=== PATIENT | female | born 1995 | race Caucasian/White ===

== ENCOUNTER → 2025-05-21 11:06 | Outpatient (REF) | payer BC, SELFPAY | LOC: DHSLP 11:06 | PROVIDERS: ATTENDING PHYSICIAN Internal Medicine Critical Care Medicine; FAMILY PHYSICIAN Otolaryngology | DX: G47.33 Obstructive sleep apnea (adult) (pediatric) (principal); R06.83 Snoring | CPT/HCPCS: 95800 ==